=== PATIENT | female | born 1980 | race Caucasian/White ===

== ENCOUNTER 2020-11-01 16:57 | Emergency (ER) | payer MEDICAID ==
[2020-11-01] MEDS ORDERED: Diphenhydramine/Lidocaine/MagAl/Simethicone 119 ML Bottle PO PRN (17:22)
--- NOTE | 2020-11-01 17:25 | EDM.PDOC ---
ED HPI GENERAL MEDICAL PROBLEM - General Chief Complaint: ENT Problem Stated Complaint: BURN INSIDE MOUTH Time Seen by Provider: 11/01/20 17:10 Source of Information: Reports: Patient, RN Notes Reviewed History Limitations: Reports: No Limitations - History of Present Illness INITIAL COMMENTS - FREE TEXT/NARRATIVE: Patient is a 39-year-old female who presents to the ED for evaluation of a burn to the inside of her mouth. The patient notes that on Monday night, she was testing some potatoes, and ended up getting a burn on the roof of her mouth. She thinks that she has a second-degree burn to the roof of her mouth, causing her pain. She was not really sure where this was on the roof of her mouth, but she states that it does hurt to eat or drink much of anything. She has been able to eat cool liquids and soft foods without much difficulty. She denies any throat pain, she has not had any fevers or chills, cough or shortness of breath, nausea/vomiting/diarrhea. Oral/Mouth Pain Score (Numeric/FACES): 9 - Related Data Allergies Allergy/AdvReac Type Severity Reaction Status Date / Time levofloxacin [From Levaquin] Allergy Hives Verified 11/01/20 17:14 Past Medical History [employer] History: Reports: Psychiatric History: Reports: Depression Social & Family History - Tobacco Use Tobacco Use Status *Q: Current Every Day Tobacco User Years of Tobacco use: 20 Packs/Tins Daily: 0.5 - Caffeine Use Caffeine Use: Reports: None ED ROS ENT - Review of Systems Review Of Systems: Comprehensive ROS is negative, except as noted in HPI. ED EXAM, ENT - Physical Exam Exam: See Below Exam Limited By: No Limitations General Appearance: Alert, WD/WN, No Apparent Distress Mouth/Throat: Normal Inspection, Normal Gums, Normal Lips, Normal Teeth, Pharyngeal Erythema (there is a roughly 2x3cm area to upper left portion of pharynx that seems to be the area of concern) Neck: Normal Inspection, Supple, Non-Tender, Full Range of Motion Respiratory/Chest: No Respiratory Distress, Lungs Clear, Normal Breath Sounds, N o Accessory Muscle Use, Chest Non-Tender Cardiovascular: Regular Rate, Rhythm, No Murmur GI/Abdominal: Normal Bowel Sounds, Soft, Non-Tender, No Distention, No Mass Extremities: Normal Inspection, Normal Capillary Refill Neurological: Alert, Oriented, Normal Cognition, No Motor/Sensory Deficits Psychiatric: Normal Affect, Normal Mood Skin: Warm, Dry, Intact, Normal Color, No Rash Course - Vital Signs Last Recorded V/S: Last Vital Signs Temp 97.9 F 11/01/20 17:12 Pulse 100 11/01/20 17:12 Resp 16 11/01/20 17:12 BP 135/95 H 11/01/20 17:12 Pulse Ox 98 11/01/20 17:12 - Orders/Labs/Meds Orders: Active Orders 24 hr Category Date Time Status Diphenhyd/Lidocaine/MagAl/Diogenes [First-Mouthwash BLM Med 11/01/20 17:22 Ordered Susp] 30 ml PO ASDIRECTED PRN Medication Orders Diphenhydr/Magaldrate/Simeth/Lidoca (First-Mouthwash Blm Susp) 30 ml PO ASDIRECTED PRN PRN Reason: Pain Meds: Medications Generic Name Dose Route Start Last Admin Trade Name Freq PRN Reason Stop Dose Admin Diphenhydr/Magaldrate/Simeth/Lidoca 30 ml 11/01/20 17:22 First-Mouthwash Blm Susp PO ASDIRECTED PRN Pain - Re-Assessments/Exams Free Text/Narrative Re-Assessment/Exam: 11/01/20 17:44 Patient presents to the ED for the burn on the inside roof of her mouth, we will get her Magic mouthwash and have her use 5 to 10 mL p.o. before meals, or when it is painful. There is roughly 120 mL in the bottle, this should give her enough for the next few days. Departure - Departure Time of Disposition: 17:44 Disposition: Home, Self-Care 01 Condition: Good Clinical Impression: Burn of oral mucosa - Discharge Information *PRESCRIPTION DRUG MONITORING PROGRAM REVIEWED*: No *COPY OF PRESCRIPTION DRUG MONITORING REPORT IN PATIENT EYAD: No Referrals: Pretty Munoz PA-C [Primary Care Provider] - Forms: ED Department Discharge Additional Instructions: You were evaluated in the ER today for the burn on the roof of your mouth. You were given a medication called Magic mouthwash, this does have lidocaine in it to help numb the area. You may use 5 to 10 mL by mouth before meals, or when it is painful. Please swish and spit this medication 5 minutes before any sort of meal time. You may also use cool liquids and/or ice to the area if it helps provide pain relief as well. You may use 500 mg Tylenol or 600 mg ibuprofen every 6 hours as needed for further pain relief. Do not exceed 4000 mg Tylenol or 3200 mg ibuprofen in a 24 time frame. Please return to the ER at any time if symptoms change or worsen. Sepsis Event Note (ED) - Evaluation Sepsis Screening Result: No Definite Risk - Focused Exam Vital Signs: Vital Signs Temp Pulse Resp BP Pulse Ox 11/01/20 17:12 97.9 F 100 16 135/95 H 98 - My Orders Last 24 Hours: My Active Orders 11/01/20 17:22 Diphenhyd/Lidocaine/MagAl/Diogenes [First-Mouthwash BLM Susp] 30 ml PO ASDIRECTED PRN - Assessment/Plan Last 24 Hours: My Active Orders 11/01/20 17:22 Diphenhyd/Lidocaine/MagAl/Diogenes [First-Mouthwash BLM Susp] 30 ml PO ASDIRECTED PRN
== END 2020-11-01 18:14 | disposition home or self-care (01) ==
LOC: JD.ED 16:57
DX: T28.0XXA Burn of mouth and pharynx, initial encounter (principal); F17.210 Nicotine dependence, cigarettes, uncomplicated; Z88.1 Allergy status to other antibiotic agents; X10.1XXA Contact with hot food, initial encounter
CPT/HCPCS: 99283; A9270

== ENCOUNTER 2021-11-02 17:28 | Emergency (ER) | payer MEDICAID, OTHER ==
--- NOTE | 2021-11-02 18:19 | CR ---
Left elbow: 4 views of the left elbow were obtained. Comparison: No prior elbow study is available. Soft tissue swelling is seen. Joint spaces within the elbow are preserved. No joint effusion is seen within the elbow. No fracture, dislocation or other bony abnormality is appreciated. Impression: 1. Soft tissue swelling. 2. Left elbow study is otherwise unremarkable. Diagnostic code #2
[2021-11-02] MEDS ORDERED: Ketorolac 60 MG/2 ML SDV IM ONE (18:51)
--- NOTE | 2021-11-02 19:01 | EDM.PDOC ---
ED HPI GENERAL MEDICAL PROBLEM - General Chief Complaint: Upper Extremity Injury/Pain Stated Complaint: CARMEN AMB Time Seen by Provider: 11/02/21 18:42 Source of Information: Reports: Patient, RN Notes Reviewed History Limitations: Reports: No Limitations - History of Present Illness INITIAL COMMENTS - FREE TEXT/NARRATIVE: Patient is a 40-year-old female brought to the ER via [facility] for the evaluation of a left elbow injury. Patient states she is not really sure how she fell, but she just ended up on the ground and she struck her left elbow on the ground. Was not dizzy or lightheaded prior to this, and did not lose consciousness or hit her head. Not having pain anywhere else at this time, again just complaining of her left elbow pain. There is a mild amount of swelling noted no open lacerations or obvious deformities. Patient denies any other sick-like symptoms, fever/chills, cough/shortness of breath, nausea/vomiting/diarrhea. 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 ED EXAM, GENERAL - Physical Exam Exam: See Below Exam Limited By: No Limitations General Appearance: Alert, WD/WN, No Apparent Distress Respiratory/Chest: No Respiratory Distress, Lungs Clear, Normal Breath Sounds, No Accessory Muscle Use, Chest Non-Tender Cardiovascular: Normal Peripheral Pulses, Regular Rate, Rhythm, No Edema Peripheral Pulses: 2+: Radial (L), Radial (R) Extremities: Normal Capillary Refill, Limited Range of Motion (of left elbow d/t pain) Neurological: Alert, Oriented, Normal Cognition, No Motor/Sensory Deficits Psychiatric: Normal Affect, Normal Mood Skin Exam: Warm, Dry, Intact, Normal Color, No Rash Course - Orders/Labs/Meds Meds: Medications Discontinued Medications Generic Name Dose Route Start Last Admin Trade Name Freq PRN Reason Stop Dose Admin Ketorolac Tromethamine 60 mg 11/02/21 18:51 Ketorolac 60 Mg/2 Ml Sdv IM 11/02/21 18:52 ONETIME ONE - Re-Assessments/Exams Free Text/Narrative Re-Assessment/Exam: 11/02/21 18:59 Elbow x-ray was taken at time of triage demonstrates no acute fracture or abnormalities. We will treat the patient with IM Toradol and have her return if symptoms are not getting better with conservative recommendations. Patient verbalized understanding. Departure - Departure Time of Disposition: 19:00 Disposition: Home, Self-Care 01 Condition: Good Clinical Impression: Left elbow pain - Discharge Information *PRESCRIPTION DRUG MONITORING PROGRAM REVIEWED*: No *COPY OF PRESCRIPTION DRUG MONITORING REPORT IN PATIENT EYAD: No Instructions: Joint Pain, [id number] Additional Instructions: You have been evaluated in the ED for your left elbow injury. Your x-ray demonstrated no acute fractures or other bony abnormalities. Please use ice as tolerated to the affected area. Please try to elevate the affected area to relieve swelling. You may take Tylenol 500 mg or ibuprofen 600mg q6 hrs for pain relief. Please do so until you have a tolerable level of pain with activity. Do not exceed 4000mg Tylenol or 3200mg ibuprofen in a 24 hour time period. Please follow-up with your regular provider for re-evaluation, if your injury is not feeling much better in roughly 7 to 10 days time. Please return to ED if your symptoms should change or worsen.
== END 2021-11-02 19:10 | disposition home or self-care (01) ==
LOC: JD.ED 17:28
DX: M25.522 Pain in left elbow (principal); Z88.1 Allergy status to other antibiotic agents
CPT/HCPCS: 73080; 96372; 99283; J1885

== ENCOUNTER 2022-10-13 12:17 | Emergency (ER) | payer MEDICAID ==
[2022-10-13 13:25] LABS: CORONAVIRUS COVID-19 NAA NEGATIVE (NEGATIVE)
[2022-10-13 13:26] LABS: ESTIMATED GFR 72 mL/min (>60)
[2022-10-13] MEDS ORDERED: Sodium Chloride 0.9% 10 ML Syringe FLUSH PRN (13:53)
[2022-10-13] MEDS ORDERED: Sodium Chloride 0.9% 1,000 ML IV SCH (13:54)
== END 2022-10-13 15:41 | disposition home or self-care (01) ==
LOC: JD.ED 12:17
DX: J06.9 Acute upper respiratory infection, unspecified (principal); Z88.1 Allergy status to other antibiotic agents; Z20.822 Contact with and (suspected) exposure to COVID-19
CPT/HCPCS: 0241U; 36415; 71045; 80053; 81001; 83735; 85025; 86140; 99283; J3490; J7030

== ENCOUNTER 2025-10-13 22:23 | Emergency (ER) | payer MEDICAID ==
[2025-10-13] MEDS: Diphtheria,Pertussis(Acell),Tetanus Vaccine 0.5 ML Syringe IM ONE (22:55)
== END 2025-10-13 23:00 | disposition home or self-care (01) ==
LOC: JD.ED 22:23
DX: S61.411A Laceration without foreign body of right hand, initial encounter (principal); Z88.1 Allergy status to other antibiotic agents; W26.8XXA Contact with other sharp object(s), not elsewhere classified, initial encounter
CPT/HCPCS: 12002; 90471; 90715; 99283-25